=== PATIENT | male | born 1970 | race Caucasian/White ===

== ENCOUNTER 2018-12-31 10:49 | Emergency (ER) | payer OTHER, SELFPAY ==
[2018-12-31 10:50] VITALS: BP 147/84; PULSE 76; RESP 18; TEMP 36.6; O2SAT 98; BMI 26.6
--- NOTE | 2018-12-31 11:52 | ED.VIS.GEN ---
History of Present Illness Chief Complaint: Lower Extremity Injury Informant: Patient, Family Onset: Yesterday Context: Sudden Onset Timing: Continuous Quality: Pain and swelling Location: Right ankle Current Severity: Mild Maximum Severity: Severe Worsened by: Movement or weightbearing Relieved by: Rest Associated Symptoms: No associated symptoms Narrative: Patient is a 48-year-old [facility] male who was referred to the emerge from by Dr. Dexter Blount. He was seen last evening at [place] emergency room. He brought x-rays that were obtained and reveals an unstable right ankle fracture. Dr. chato arriaza was contacted as he is on-call for the [facility]. He recommended referral to Dr. Je Blount their foot and ankle specialist. Patient denies paresthesia, anesthesia motors. He denies knee pain or hip pain. He is uncertain how this occurred. Prior similar symptoms: No Recent Illness/Hospitalization: No - Past Medical History (1) No significant past medical history Status: Acute Past Medical History - Allergies and Home Meds Allergies/Adverse Reactions: Allergies No Known Allergies Allergy (Verified 12/31/18 10:52) Primary Care Physician: Avinash Barahona DO [Primary Care Provider] - Prior records reviewed: No Past Medical History: None Surgical History: no surgical history Lives: With Family Smoking Status: Never smoker Alcohol: None Drugs: None Review of Systems General: Denies: Chills, Fever Gastrointestinal: Denies: Nausea, Vomiting Musculoskeletal: Reports: Swelling, Extremity Pain. Denies: Myalgias, Arthralgias, Neck pain, Back pain Neurological: Denies: Weakness, Parasthesia, Numbness Hematologic: Denies: Easy bruising, Easy bleeding Physical Exam Vital Signs/Narrative: Vital Signs Temp Pulse Resp BP Pulse Ox 12/31/18 10:50 97.9 F 76 18 147/84 H 98 Inital Vital Signs reviewed: Yes General: Well nourished, Well developed, No Acute Distress Head: Normocephalic, Atraumatic Eyes: Perrl, EOMI. Negative for: Pale conjunctiva, Scleral icterus ENT: No rhinorrhea Neck: Supple, Nontender, No JVD Cardiovascular: Regular rate, Regular rhythm, No murmurs Respiratory: No distress Extremities: Tenderness, Edema, - - There is swelling with pain the patient over the lateral and medial malleolus. DP pulses palpable. PT pulses palpable with diminished most likely secondary to swelling. There is no pain the patient the base of the fifth metatarsal. Is no pain the patient over the fibular head or tibial plateau. Skin: Normal color, No rash, Trauma Neurological: Alert, Oriented x3, Cranial nerves II-XII grossly intact, Normal Strength, Normal Sensation. Negative for: Normal Gait Psychological: Normal affect Diagnostic/Tx/Re-eval - Medical Decision Making From outside facility were reviewed. There were 3 views obtained. There is a fracture at the joint line of the distal fibula with slight displacement less than 10%, and widening of the mortise. There is no evidence of fracture of the medial malleolus. Patient was placed in a short leg posterior leg splint for mobilization. He was referred to Dr. Je Arndt Procedures - Lower Extremity Splints Lower Extremity Splint: Plaster, - - Posterior short leg Splint Fabrication: Fabricated Location: Right ED Disposition - Plan for ED Patient: Disposition: Home or Assisted Living Diagnosis: Unstable right ankle fracture Instructions: ANKLE FRACTURE (Distal Fibula), closed Referrals: Rogelio Blount DPM [STAFF PHYSICIAN] - 5-7 Days Additional Instructions: 1. Call Dr. Blount's office today for appointment to be seen next week. 2. You must keep the splint absolutely clean and dry. 3. Elevate ankle above the nose 4. Apply ice 20 to 30 minutes per application 6-8 times a day 5. You are to put no weight on your right foot
== END 2018-12-31 12:11 | disposition home or self-care (01) ==
PROVIDERS: Emergency Provider Emergency Medicine; Family Provider Family Medicine; PCP Family Medicine
DX: S82.831A Other fracture of upper and lower end of right fibula, initial encounter for closed fracture (principal); X58.XXXA Exposure to other specified factors, initial encounter; Y93.9 Activity, unspecified; Y92.9 Unspecified place or not applicable
CPT/HCPCS: 29515; 99282